=== PATIENT | male | born 1985 | race Two or more races ===

== ENCOUNTER 2024-06-04 23:01 | Emergency (ER) | payer OTHER ==
[~2024-06-04] VITALS: Ht 177.8 cm; Wt 108.9 kg
[2024-06-04] MEDS: HYDROCODONE/APAP 5/325MG TABLET PO ONE (23:25)
[2024-06-04] MEDS ORDERED: HYDROCODONE/APAP 5/325MG TABLET ONE (23:25)
[2024-06-05] MEDS ORDERED: AMOX/CLAVULANATE 875 MG TABLET ONE ×2 (00:35→00:36)
[2024-06-05 00:39] LABS: BASOPHILS % (AUTO) 0.1 % (0.0-2.0); EOSINOPHILS # (AUTO) 0.1 K/uL (0.0-0.7); HEMATOCRIT 45 % (39-51); HEMOGLOBIN 15.1 g/dL (13.5-17.5); LYMPHOCYTES # (AUTO) 1.5 K/uL (0.8-4.8); LYMPHOCYTES % (AUTO) 12.7 % (20.0-44.0); MEAN CORPUSCULAR HEMOGLOBIN 30 PG (26.0-33.0); MEAN CORPUSCULAR HGB CONC 34 g/dl (31.0-36.0); MEAN CORPUSCULAR VOLUME 89 fL (80-96); MONOCYTES # (AUTO) 0.8 K/uL (0.1-1.30); MONOCYTES % (AUTO) 6.7 % (2.0-12.0); NEUTROPHILS # (AUTO) 9.6 K/uL (1.8-8.9); NEUTROPHILS % (AUTO) 79.5 % (43.0-81.0); PLATELET COUNT (AUTO) 202 K/uL (150-450); RED BLOOD CELL COUNT(AUTO) 5.05 MIL/uL (4.5-6.0); RED CELL DISTRIBUTION WIDTH 13.7 % (11.5-15.0); WHITE BLOOD COUNT (AUTO) 12.1 K/uL (4.3-11.0)
[2024-06-05] MEDS: AMOX/CLAVULANATE 875 MG TABLET PO ONE (00:39)
[2024-06-05 00:43] LABS: CALCIUM, SERUM 8.6 mg/dL (8.5-10.1); CREATININE 0.9 mg/dL (0.6-1.3)
[2024-06-05 01:01] LABS: INR 1.01 (0.91-1.10); PARTIAL THROMBOPLASTIN TIME 31.5 SEC (24.3-34.3); PROTHROMBIN TIME 10.7 SECS (9.2-11.1)
[2024-06-05 01:38] VITALS: TEMP 98.6; O2SAT 98
[2024-06-05] MEDS ORDERED: hydrALAZINE HCL IV 20 MG VIAL ONE (04:25)
[2024-06-05 04:28] VITALS: BP 169/112
[2024-06-05] MEDS: hydrALAZINE HCL IV 20 MG VIAL IV ONE (04:28)
== END 2024-06-05 05:04 | disposition short-term general hospital (02) ==
LOC: ER 23:05
DX: S02.2XXA Fracture of nasal bones, initial encounter for closed fracture (principal); S06.4X0A Epidural hemorrhage without loss of consciousness, initial encounter; S00.81XA Abrasion of other part of head, initial encounter; S00.83XA Contusion of other part of head, initial encounter; S20.219A Contusion of unspecified front wall of thorax, initial encounter; S90.31XA Contusion of right foot, initial encounter; S80.02XA Contusion of left knee, initial encounter; M25.562 Pain in left knee; M79.671 Pain in right foot; I10 Essential (primary) hypertension; Z20.822 Contact with and (suspected) exposure to COVID-19; X58.XXXA Exposure to other specified factors, initial encounter; Y93.89 Activity, other specified; Y92.89 Other specified places as the place of occurrence of the external cause; Y99.8 Other external cause status
CPT/HCPCS: 99285; 70450; 71045; 73630; 73564; 70486; 96374; 87426; 93005; 85025; 80048; 36415; 85730; J0360